=== PATIENT | female | born 1960 | race American Indian/Alaskan Native ===

== ENCOUNTER 2017-02-01 08:19 | Emergency (ER) | payer BC ==
[2017-02-01 08:20] VITALS: BMI 26.6
--- NOTE | 2017-02-01 08:44 | ED PDOC ---
Arrival/HPI - General Chief Complaint: Cough, Cold, Congestion Time Seen by Provider: 02/01/17 08:32 Historian: Patient - History of Present Illness Narrative History of Present Illness (Text): 02/01/17 08:37 A 56 year old female, whose past medical history includes hypertension, presents to the emergency department complaining of a nonproductive cough for the past three days. patient reports cough is not getting any better so she just wanted to come in and get evaluated. Patient denies any fever, chest pain, shortness of breath, nausea, vomiting, diarrhea, sore throat, runny nose, or any other complaints at this time. PMD: Dr. Fraga Time/Duration: Other (3 days) Symptom Onset: Sudden Symptom Course: Unchanged Quality: Other Activities at Onset: Rest Context: Home Past Medical History - Provider Review Nursing Documentation Reviewed: Yes - Infectious Disease Hx of Infectious Diseases: None - Cardiac Hx Cardiac Disorders: Yes Hx Hypertension: Yes - Pulmonary Hx Respiratory Disorders: No - Neurological Hx Neurological Disorder: No - HEENT Hx HEENT Disorder: No - Renal Hx Renal Disorder: No - Endocrine/Metabolic Hx Endocrine Disorders: No - Hematological/Oncological Hx Blood Disorders: No - Integumentary Hx Dermatological Disorder: No - Musculoskeletal/Rheumatological Hx Musculoskeletal Disorders: No - Gastrointestinal Hx Gastrointestinal Disorders: No - Genitourinary/Gynecological Hx Genitourinary Disorders: No - Psychiatric Hx Psychophysiologic Disorder: No Hx Substance Use: No - Surgical History Hx Dilation and Curettage: Yes - Anesthesia Hx Anesthesia: Yes Hx Anesthesia Reactions: No Hx Malignant Hyperthermia: No Family/Social History - Physician Review Nursing Documentation Reviewed: Yes Family/Social History: Unknown Family HX Smoking Status: Heavy Smoker > 10 Cigarettes Daily Hx Alcohol Use: No Hx Substance Use: No Allergies/Home Meds Allergies/Adverse Reactions: Allergies lisinopril Allergy (Verified 02/01/17 08:31) SWELLING Home Medications: Home Meds Medication Instructions Recorded Confirmed amLODIPine [Norvasc] 1 tab PO DAILY 01/11/16 02/01/17 Review of Systems - Physician Review All systems were reviewed & negative as marked: Yes - Review of Systems Constitutional: absent: Fevers ENT: absent: Sore Throat, Rhinorrhea Respiratory: Cough. absent: SOB, Sputum Cardiovascular: absent: Chest Pain Gastrointestinal: absent: Diarrhea, Nausea, Vomiting Physical Exam Vital Signs Reviewed: Yes Vital Signs Temp Pulse Resp BP Pulse Ox 02/01/17 08:25 97.8 F 94 H 20 134/102 H 98 02/01/17 08:20 97.8 F 94 H 20 134/102 H 98 Temperature: Afebrile Blood Pressure: Hypertensive Pulse: Regular Respiratory Rate: Normal Appearance: Positive for: Well-Appearing, Non-Toxic, Comfortable Pain Distress: None Mental Status: Positive for: Alert and Oriented X 3 - Systems Exam Head: Present: Atraumatic, Normocephalic Pupils: Present: PERRL Extroacular Muscles: Present: EOMI Conjunctiva: Present: Normal Mouth: Present: Moist Mucous Membranes Neck: Present: Normal Range of Motion Respiratory/Chest: Present: Clear to Auscultation, Good Air Exchange. No: Respiratory Distress, Accessory Muscle Use Cardiovascular: Present: Regular Rate and Rhythm, Normal S1, S2. No: Murmurs Abdomen: Present: Normal Bowel Sounds. No: Tenderness, Distention, Peritoneal Signs Back: Present: Normal Inspection Upper Extremity: Present: Normal Inspection. No: Cyanosis, Edema Lower Extremity: Present: Normal Inspection. No: Edema Neurological: Present: GCS=15, CN II-XII Intact, Speech Normal Skin: Present: Warm, Dry, Normal Color. No: Rashes Psychiatric: Present: Alert, Oriented x 3, Normal Insight, Normal Concentration Medical Decision Making ED Course and Treatment: 02/01/17 08:37 Impression: A 56 year old female with a nonproductive cough. Differential Diagnosis include but are not limited to: bronchitis vs. pneumonia vs. influenza Plan: -- Chest X-ray -- Influenza A/B -- Reassess and disposition Prior Visits: Notes and results from previous visits were reviewed. The patient last presented to the emergency department on 12/20/16 for evaluation of sharp left calf pain. Progress Notes: 02/01/17 09:20 Chest X-ray: Creator : Dylon Landaverde MD COMPARISON: No prior. FINDINGS: LUNGS: No active pulmonary disease. PLEURA: No significant pleural effusion identified. No pneumothorax apparent. CARDIOVASCULAR: Normal. OSSEOUS STRUCTURES: No significant abnormalities. VISUALIZED UPPER ABDOMEN: Normal. OTHER FINDINGS: None. IMPRESSION: No active disease. 02/01/17 09:55 Patient serology is negative for Influenza A and B. On re-evaluation, the patient is in no acute distress. Patient is able to speak in full sentence. Chest X-ray is negative. Influenza is negative. Patient is sleeping comfortably and stable for discharge. I have discussed the results and plan with the patient, who expresses understanding. Patient in agreement with plan to discharged home. Patient was advised to follow up with outpatient or return if symptoms worsen or new concerning symptoms arise. - Lab Interpretations Lab Results: Lab Results 02/01/17 09:00: Influenza Typ A,B (EIA) Negative for flu a/b I have reviewed the lab results: Yes - RAD Interpretation Radiology Orders: 02/01/17 08:40 CHEST TWO VIEWS (PA/LAT) [RAD] Stat - Scribe Statement The provider has reviewed the documentation as recorded by the Scribe Tiffanie Dillard Provider Scribe Attestation: All medical record entries made by the Scribe were at my direction and personally dictated by me. I have reviewed the chart and agree that the record accurately reflects my personal performance of the history, physical exam, medical decision making, and the department course for this patient. I have also personally directed, reviewed, and agree with the discharge instructions and disposition. Disposition/Present on Arrival - Present on Arrival Any Indicators Present on Arrival: No History of DVT/PE: No History of Uncontrolled Diabetes: No Urinary Catheter: No History of Decub. Ulcer: No History Surgical Site Infection Following: None - Disposition Have Diagnosis and Disposition been Completed?: Yes Diagnosis: Cough Disposition: HOME/ ROUTINE Disposition Time: 09:55 Patient Problems: Current Active Problems Problem Status Diagnosed Cough Acute Condition: STABLE Discharge Instructions (ExitCare): Upper Respiratory Infection (ED) Additional Instructions: please follow up with your doctor. return to er with worsening symptoms or concerns. Prescriptions: levoFLOXacin [Levaquin] 750 mg PO DAILY #7 tab Benzonatate [Tessalon Perle] 100 mg PO TID PRN #15 capsule PRN Reason: Cough Referrals: Rashaun Fraga MD [Primary Care Provider] - Follow up with primary
--- NOTE | 2017-02-01 09:20 | RAD ---
HISTORY: cough COMPARISON: No prior. TECHNIQUE: Chest PA and lateral FINDINGS: LUNGS: No active pulmonary disease. PLEURA: No significant pleural effusion identified. No pneumothorax apparent. CARDIOVASCULAR: Normal. OSSEOUS STRUCTURES: No significant abnormalities. VISUALIZED UPPER ABDOMEN: Normal. OTHER FINDINGS: None. IMPRESSION: No active disease.
[2017-02-01 10:33] VITALS: BP 136/86; PULSE 84; RESP 18; TEMP 98; O2SAT 97
== END 2017-02-01 10:33 | disposition home or self-care (01) ==
LOC: ED 08:19
DX: R05 Cough (principal); I10 Essential (primary) hypertension; F17.210 Nicotine dependence, cigarettes, uncomplicated

== ENCOUNTER 2017-02-02 22:57 | Emergency (ER) | payer BC ==
[2017-02-02 23:07] VITALS: BMI 30.2
[2017-02-02 23:10] VITALS: TEMP 98.6
--- NOTE | 2017-02-02 23:18 | ED PDOC ---
Arrival/HPI - General Chief Complaint: Abdominal Pain Time Seen by Provider: 02/02/17 23:08 Historian: Patient - History of Present Illness Narrative History of Present Illness (Text): 02/02/17 23:18 Mary Odonnell is a 56 year old female, whose past medical history include hypertension, who presents to the emergency department complaining of lower abdominal pain. Patient states she was seen in the emergency department yesterday, treated for a URI, and discharged home on Levaquin and Tessalon Perles. Patient states that she developed lower abdominal pain radiating to her back today. Patient denies any fever, chills, chest pain, shortness of breath, nausea, vomiting, diarrhea, urinary symptoms, neck pain, headache, dizziness, or any other complaints. PMD: Dr. Mike Fraga Time/Duration: Other (today) Symptom Onset: Gradual Symptom Course: Unchanged Activities at Onset: Rest, Light Context: Home Past Medical History - Infectious Disease Hx of Infectious Diseases: None - Cardiac Hx Cardiac Disorders: Yes Hx Hypertension: Yes - Pulmonary Hx Respiratory Disorders: No - Neurological Hx Neurological Disorder: No - HEENT Hx HEENT Disorder: No - Renal Hx Renal Disorder: No - Endocrine/Metabolic Hx Endocrine Disorders: No - Hematological/Oncological Hx Blood Disorders: No - Integumentary Hx Dermatological Disorder: No - Musculoskeletal/Rheumatological Hx Musculoskeletal Disorders: No - Gastrointestinal Hx Gastrointestinal Disorders: No - Genitourinary/Gynecological Hx Genitourinary Disorders: No - Psychiatric Hx Psychophysiologic Disorder: No Hx Substance Use: No - Surgical History Hx Dilation and Curettage: Yes - Anesthesia Hx Anesthesia: Yes Hx Anesthesia Reactions: No Hx Malignant Hyperthermia: No Family/Social History Family/Social History: No Known Family HX Smoking Status: Heavy Smoker > 10 Cigarettes Daily Hx Alcohol Use: No Hx Substance Use: No Allergies/Home Meds Allergies/Adverse Reactions: Allergies lisinopril Allergy (Verified 02/01/17 08:31) SWELLING Home Medications: Home Meds Medication Instructions Recorded Confirmed amLODIPine [Norvasc] 1 tab PO DAILY 01/11/16 02/01/17 Review of Systems - Physician Review All systems were reviewed & negative as marked: Yes - Review of Systems Constitutional: Normal. absent: Fevers Eyes: Normal ENT: Normal Respiratory: Normal. absent: SOB, Cough Cardiovascular: Normal. absent: Chest Pain Gastrointestinal: Abdominal Pain. absent: Diarrhea, Nausea, Vomiting Genitourinary Female: Normal. absent: Dysuria, Frequency, Hematuria, Urine Output Changes Musculoskeletal: Back Pain. absent: Neck Pain Skin: Normal. absent: Rash Neurological: Normal. absent: Headache, Dizziness Endocrine: Normal Hemo/Lymphatic: Normal Psychiatric: Normal Physical Exam Vital Signs Reviewed: Yes Vital Signs Temp Pulse Resp BP Pulse Ox 02/03/17 05:17 93 H 16 148/91 H 99 02/03/17 02:51 72 16 133/94 H 96 02/03/17 00:09 86 16 147/109 H 96 02/02/17 23:09 98.6 F 94 H 18 144/111 H 96 Temperature: Afebrile Blood Pressure: Normal Pulse: Regular Respiratory Rate: Normal Appearance: Positive for: Well-Appearing, Non-Toxic, Comfortable Pain Distress: None Mental Status: Positive for: Alert and Oriented X 3 - Systems Exam Head: Present: Atraumatic, Normocephalic Pupils: Present: PERRL Extroacular Muscles: Present: EOMI Conjunctiva: Present: Normal Mouth: Present: Moist Mucous Membranes Neck: Present: Normal Range of Motion Respiratory/Chest: Present: Clear to Auscultation, Good Air Exchange. No: Respiratory Distress, Accessory Muscle Use Cardiovascular: Present: Regular Rate and Rhythm, Normal S1, S2. No: Murmurs Abdomen: Present: Normal Bowel Sounds. No: Tenderness, Distention, Peritoneal Signs Back: Present: Normal Inspection. No: CVA Tenderness, Midline Tenderness, Paraspinal Tenderness Upper Extremity: Present: Normal Inspection. No: Cyanosis, Edema Lower Extremity: Present: Normal Inspection. No: Edema Neurological: Present: GCS=15, CN II-XII Intact, Speech Normal Skin: Present: Warm, Dry, Normal Color. No: Rashes Psychiatric: Present: Alert, Oriented x 3, Normal Insight, Normal Concentration Medical Decision Making ED Course and Treatment: 02/02/17 23:18 Impression: 56 year old female complaining of lower abdominal pain radiating to her back today. Differential Diagnosis included but are not limited to: UTI vs. cystitis vs. renal colic vs. URI Plan: -- CT Abdomen and Pelvis with IV contrast -- EKG -- Labs, lipase -- IV fluids -- Toradol -- Reassess and disposition Prior Visits: Notes and results from previous visits were reviewed. On 02/01/2017, pt was seen in the emergency department for non-productive cough. CXR and rapid influenza performed yesterday were negative. Pt was d/c home with Kristy and Lo Hahn Progress Notes: 02/02/17 23:41 Reviewed EKG, NSR at [address]-segment elevations or depressions, no T-wave inversions, normal intervals. 02/03/17 02:44 Reviewed radiology, CT Abdomen and Pelvis shows: No acute findings. 02/03/17 04:50 Patient is resting comfortably, abdomen remains soft, and patient is tolerating PO. Patient feels comfortable going home. Patient will be discharged home. - Lab Interpretations Lab Results: 02/02/17 23:50 02/02/17 23:50 Lab Results 02/03/17 03:40: Urine Color yellow, Urine Appearance Clear, Urine pH 6.5, Ur Specific [place] 1.010, Urine Protein Trace H, Urine Glucose (UA) Negative, Urine Ketones Negative, Urine Blood Moderate H, Urine Nitrate Negative, Urine Bilirubin Negative, Urine Urobilinogen 1.0 H, Ur Leukocyte Esterase Negative, Urine RBC 20 - 25, Urine WBC 1 - 3, Ur Epithelial Cells 0 - 2 02/02/17 23:50: WBC 6.0, RBC 5.05, Hgb 15.4, Hct 45.7, MCV 90.5, MCH 30.5, MCHC 33.7, RDW 13.8, Plt Count 258, MPV 9.5, PT 11.1, INR 1.03, APTT 27.8, Sodium 138 , Potassium 3.9, Chloride 106, Carbon Dioxide 22, Anion Gap 14, BUN 14, Creatinine 0.9, Est GFR ( Amer) > 60, Est GFR (Non-Af Amer) > 60, Random Glucose 97, Calcium 9.1, Total Bilirubin 0.5, AST 38, ALT 36, Alkaline Phosphatase 112, Total Protein 7.6, Albumin 3.9, Globulin 3.7, Albumin/Globulin Ratio 1.1, Lipase 46 I have reviewed the lab results: Yes - RAD Interpretation Narrative RAD Interpretations (Text): CT Abdomen and Pelvis shows: Lower thorax: Basilar dependent pulmonary atelectasis is present. ABDOMEN: Liver: Unremarkable. No mass. Gallbladder and bile ducts: Unremarkable. No calcified stones. No ductal dilation. Pancreas: Unremarkable. No mass. No ductal dilation. Spleen: Unremarkable. No splenomegaly. Adrenals: Unremarkable. No mass. Kidneys and ureters: Unremarkable. No solid mass. No hydronephrosis. Stomach and bowel: Unremarkable. No obstruction. No mucosal thickening Appendix: No findings to suggest acute appendicitis. PELVIS: Bladder: Unremarkable. No mass. Reproductive: Myomatous uterus noted ABDOMEN and PELVIS: Intraperitoneal space: Unremarkable. No free air. No significant fluid collection. Bones/joints: No acute fracture. No dislocation. Soft tissues: Unremarkable. Vasculature: Unremarkable. No abdominal aortic aneurysm. Lymph nodes: Unremarkable. No enlarged lymph nodes. IMPRESSION: No acute findings. Radiology Orders: 02/03/17 01:05 ABD & PELVIS IV CONTRAST ONLY [CT] Stat Assisted Living Associate: Radiologist - EKG Interpretation EKG Interpretation (Text): EKG: Ordered, reviewed, and independently interpreted the EKG. Rate : 86 BPM Rhythm : NSR Interpretation : No ST-segment elevations or depressions, no T-wave inversions, normal intervals. Comparison : No previous EKG for comparison. Interpreted by ED Physician: Yes Type: 12 lead EKG - Medication Orders Current Medication Orders: Discontinued Medications Sodium Chloride (Sodium Chloride 0.9%) 1,000 mls @ 100 mls/hr IV .Q10H HANNA Last Admin: 02/02/17 23:58 Dose: 100 MLS/HR eMAR Start Stop Document 02/02/17 23:58 EKEOO (Rec: 02/02/17 23:58 [id number]) Intravenous Solution Start Date 02/02/17 Start Time 23:58 Iohexol (Omnipaque 350 100 Ml) Confirm Administered Dose 350 mg .ROUTE .STK-MED ONE Stop: 02/03/17 01:12 Ketorolac Tromethamine (Toradol) 30 mg IVP ONCE ONE Stop: 02/02/17 23:33 Last Admin: 02/02/17 23:58 Dose: 30 MG IVP Administration Document 02/02/17 23:58 EKEOO (Rec: 02/02/17 23:58 [id number]) Charges for Administration # of IVP Administrations 1 - Scribe Statement The provider has reviewed the documentation as recorded by the Kevin Butler Provider Attestation: All medical record entries made by the Scribe were at my direction and personally dictated by me. I have reviewed the chart and agree that the record accurately reflects my personal performance of the history, physical exam, medical decision making, and the department course for this patient. I have also personally directed, reviewed, and agree with the discharge instructions and disposition. Disposition/Present on Arrival - Present on Arrival Any Indicators Present on Arrival: No History of DVT/PE: No History of Uncontrolled Diabetes: No Urinary Catheter: No History of Decub. Ulcer: No History Surgical Site Infection Following: None - Disposition Have Diagnosis and Disposition been Completed?: Yes Diagnosis: Cystitis, URI (upper respiratory infection) Disposition: HOME/ ROUTINE Disposition Time: 04:50 Patient Plan: Discharge Condition: GOOD Discharge Instructions (ExitCare): Urinary Tract Infection in Women (ED), Upper Respiratory Infection (ED) Additional Instructions: Stop levaquin antibiotics/take Keflex meds as prescribed/drink plenty of liquids /follow up with your doctor /urologist this week Prescriptions: Cephalexin [cephalexin] 500 mg PO BID #14 cap Referrals: Rashaun Fraga MD [Primary Care Provider] - Follow up with primary Stef Toney MD [Staff Provider] - Follow up with primary
[2017-02-02] MEDS ORDERED: Sodium Chloride 0.9% 1,000 ML IV SCH (23:45)
[2017-02-03 00:10] VITALS: RESP 16
[2017-02-03 00:31] LABS: HEMATOCRIT 45.7 % (36.0-48.0); MEAN CELL VOLUME 90.5 fL (80.0-105.0); MEAN CORPUSCULAR HEMOGLOBIN 30.5 pg (25.0-35.0); MEAN CORPUSCULAR HGB CONC 33.7 g/dl (31.0-37.0); MEAN PLATELET VOLUME 9.5 fl (7.0-11.0); RED CELL DISTRIBUTION WIDTH 13.8 % (11.5-14.5)
[2017-02-03 00:37] LABS: INR 1.03 (0.93-1.08); PARTIAL THROMBOPLASTIN TIME 27.8 Seconds (23.7-30.8)
[2017-02-03 00:47] LABS: ALB/GLOB RATIO 1.1 (1.1-1.8); ALKALINE PHOSPHATASE 112 U/L (38-133); ALT/SGPT 36 U/L (7-56); AST/SGOT 38 U/L (15-39); BILIRUBIN,TOTAL 0.5 mg/dL (0.2-1.3); BLOOD UREA NITROGEN 14 mg/dL (7-21); CALCIUM 9.1 mg/dL (8.4-10.5); CARBON DIOXIDE 22 mmol/L (21-33); CHLORIDE 106 mmol/L (98-107); GFR AFRICAN-AMERICAN > 60; GLUCOSE,RANDOM 97 mg/dL (70-110); LIPASE 46 U/L (23-300); POTASSIUM 3.9 mmol/L (3.6-5.0); SODIUM 138 mmol/L (132-148); TOTAL PROTEIN 7.6 g/dL (5.8-8.3)
[2017-02-03] MEDS ORDERED: Iohexol 350 MG/100 ML VIAL ONE (01:11)
[2017-02-03 04:27] LABS: PH,URINE 6.5 (4.7-8.0); URINE BILIRUBIN NEGATIVE (NEGATIVE); URINE BLOOD MODERATE (NEGATIVE); URINE GLUCOSE (UA) NEGATIVE (NEGATIVE); URINE KETONE NEGATIVE (NEGATIVE); URINE LEUKOCYTE ESTERASE NEGATIVE Leu/uL (NEGATIVE); URINE PROTEIN TRACE mg/dL (<30 mg/dL)
[2017-02-03 04:33] LABS: URINE APPEARANCE CLEAR (CLEAR); URINE EPITHELIAL CELLS 0 - 2 /hpf (0-5); URINE RBC 20 - 25 /hpf (0-2)
[2017-02-03 05:18] VITALS: BP 148/91; PULSE 93; O2SAT 99
--- NOTE | 2017-02-03 08:36 | CT ---
PROCEDURE: CT Abdomen and Pelvis with contrast HISTORY: abdominal pain COMPARISON: None. TECHNIQUE: Contrast dose: 100 cc of Omni 350 Radiation dose: Total exam DLP = 766 mGy-cm. This CT exam was performed using one or more of the following dose reduction techniques: Automated exposure control, adjustment of the mA and/or kV according to patient size, and/or use of iterative reconstruction technique. FINDINGS: LOWER THORAX: Unremarkable. LIVER: Unremarkable. No gross lesion or ductal dilatation. GALLBLADDER AND BILE DUCTS: Unremarkable. PANCREAS: Unremarkable. No gross lesion or ductal dilatation. SPLEEN: Unremarkable. ADRENALS: Unremarkable. No mass. KIDNEYS AND URETERS: Unremarkable. No hydronephrosis. No solid mass. VASCULATURE: Unremarkable. No aortic aneurysm. BOWEL: Unremarkable. No obstruction. No gross mural thickening. APPENDIX: Normal appendix. PERITONEUM: Unremarkable. No free fluid. No free air. LYMPH NODES: Unremarkable. No enlarged lymph nodes. BLADDER: Unremarkable. REPRODUCTIVE: Probable fibroids BONES: No acute fracture. OTHER FINDINGS: The report concurs with the preliminary [facility] report IMPRESSION: No acute findings
--- NOTE | 2017-02-03 12:14 | CARD ---
APPROVED REPORT EKG Measurement Heart [id number] <Conclusion> Normal sinus rhythm Normal ECG
== END 2017-02-03 05:19 | disposition home or self-care (01) ==
LOC: ED 22:57
DX: J06.9 Acute upper respiratory infection, unspecified (principal); N30.90 Cystitis, unspecified without hematuria; I10 Essential (primary) hypertension; F17.210 Nicotine dependence, cigarettes, uncomplicated
CPT/HCPCS: 74177; 80053; 81001; 83690; 85027; 85610; 85730; 93005; 96374; 99283; J1885; J7040; Q9967

== ENCOUNTER 2017-08-08 17:53 | Emergency (ER) | payer BC ==
[2017-08-08 17:54] VITALS: BMI 30.2
[2017-08-08 18:04] VITALS: TEMP 99.4
[2017-08-08] MEDS ORDERED: Albuterol-Ipratrop 3 mg / 0.5 (3 ml) UD IH STA (19:10)
--- NOTE | 2017-08-08 19:15 | ED PDOC ---
Arrival/HPI - General Chief Complaint: Cough, Cold, Congestion Time Seen by Provider: 08/08/17 18:13 Historian: Patient - History of Present Illness Narrative History of Present Illness (Text): 08/08/17 19:12 This 56-year-old female past medical history hypertension presents to the ED complaining of productive cough 2 days. Patient stated since then has worsened today. Patient also complains of nasal congestion. Patient admits smoking cigarettes on a daily basis. Denies fever, chest pain, abdominal pain, recent travel, sick contact, urinary symptoms, or abnormal gait. Time/Duration: Other (2 days) Context: Home Past Medical History - Provider Review Nursing Documentation Reviewed: Yes - Infectious Disease Hx of Infectious Diseases: None - Cardiac Hx Cardiac Disorders: Yes Hx Hypertension: Yes - Pulmonary Hx Respiratory Disorders: Yes Hx Asthma: Yes - Neurological Hx Neurological Disorder: No - HEENT Hx HEENT Disorder: No - Renal Hx Renal Disorder: No - Endocrine/Metabolic Hx Endocrine Disorders: No - Hematological/Oncological Hx Blood Disorders: No - Integumentary Hx Dermatological Disorder: No - Musculoskeletal/Rheumatological Hx Musculoskeletal Disorders: No - Gastrointestinal Hx Gastrointestinal Disorders: No - Genitourinary/Gynecological Hx Genitourinary Disorders: No - Psychiatric Hx Psychophysiologic Disorder: No Hx Substance Use: No - Surgical History Hx Breast Biopsy: Yes (cyst removal left breast) Hx Dilation and Curettage: Yes - Anesthesia Hx Anesthesia: Yes Hx Anesthesia Reactions: No Hx Malignant Hyperthermia: No Family/Social History - Physician Review Nursing Documentation Reviewed: Yes Family/Social History: Other (Noncontributory) Smoking Status: Heavy Smoker > 10 Cigarettes Daily Hx Alcohol Use: No Hx Substance Use: No Allergies/Home Meds Allergies/Adverse Reactions: Allergies lisinopril Allergy (Verified 08/08/17 18:02) SWELLING Home Medications: Home Meds Medication Instructions Recorded Confirmed amLODIPine [Norvasc] 10 mg PO DAILY 01/11/16 08/08/17 Review of Systems - Review of Systems Constitutional: Normal. absent: Fatigue, Weight Change, Fevers Eyes: Normal ENT: Rhinorrhea Respiratory: Cough Cardiovascular: Normal. absent: Chest Pain, Palpitations Gastrointestinal: Normal. absent: Abdominal Pain, Nausea, Vomiting Genitourinary Female: Normal. absent: Dysuria, Frequency, Hematuria Musculoskeletal: Normal Skin: Normal Neurological: Normal Endocrine: Normal Hemo/Lymphatic: Normal Psychiatric: Normal Physical Exam Vital Signs Temp Pulse Resp BP Pulse Ox 08/08/17 18:03 99.4 F 100 H 17 128/91 H 99 Temperature: Afebrile Blood Pressure: Normal Pulse: Regular Respiratory Rate: Normal Appearance: Positive for: Well-Appearing, Non-Toxic, Comfortable Pain Distress: None Mental Status: Positive for: Alert and Oriented X 3 - Systems Exam Head: Present: Atraumatic, Normocephalic Pupils: Present: PERRL Extroacular Muscles: Present: EOMI Conjunctiva: Present: Normal Mouth: Present: Moist Mucous Membranes Neck: Present: Normal Range of Motion Respiratory/Chest: Present: Good Air Exchange, Rhonchi. No: Respiratory Distress, Accessory Muscle Use, Wheezes, Decreased Breath Sounds, Rales, Retracting, Tachypneic, Tender to Palpation Cardiovascular: Present: Regular Rate and Rhythm, Normal S1, S2. No: Murmurs Abdomen: Present: Normal Bowel Sounds. No: Tenderness, Distention, Peritoneal Signs Back: Present: Normal Inspection. No: CVA Tenderness Upper Extremity: Present: Normal Inspection, Normal ROM, NORMAL PULSES, Neurovascularly Intact, Capillary Refill < 2s. No: Cyanosis, Edema Lower Extremity: Present: Normal Inspection, NORMAL PULSES, Normal ROM, Neurovascularly Intact, Capillary Refill < 2 s. No: Edema, CALF TENDERNESS Neurological: Present: GCS=15, CN II-XII Intact, Speech Normal, Motor Func Grossly Intact, Normal Sensory Function, Normal Cerebellar Funct, Gait Normal Skin: Present: Warm, Dry, Normal Color. No: Rashes Psychiatric: Present: Alert, Oriented x 3, Normal Insight, Normal Concentration Medical Decision Making ED Course and Treatment: 08/08/17 20:00 I reviewed risk vs benefits when taking Prednisone. I told patient risks ar but not only AVN, glaucoma, DM, osteoporosis, renal failure, liver failure, mood disorder. She was also instructed to stop Prednisone earlier if symptoms improves. Patient still requested to be prescribed Prednisone, and she understood risk. 08/08/17 20:43 Re-evaluation. Patient feels better. Discussed results and plan with patient who expresses understanding. All questions answered and there is agreement with the plan to discharge home with instructions. Patient stable for discharge. Return if symptoms persist or worsen. Lungs are clear bilaterally, no rhonchi, no wheezing, no rales. Patient feels well and she wishes to be discharged home. I review chest x-ray report with patient. Chest x-rays was read by me. I told patient chest x-ray appears to be no acute disease. I told patient official report chest x-ray will be available tomorrow and if there is any changes we would call her with the up-to-date result. I recommend patient to see Dr. Fraga tomorrow morning for reevaluation. Patient was recommended to take medication as instructed with food and to return to the emergency department if symptoms worsen I advised patient to stop smoking cigarettes. I explained about the risk involved and smoking tobacco, and different ways to stop smoking. This took me about 5 minutes. 08/08/17 20:52 Patient is requesting ABX Re-evaluation Time: 20:43 Reassessment Condition: Re-examined, Improved - RAD Interpretation Narrative RAD Interpretations (Text): 08/08/17 20:45 Chest x-rays: no acute disease Radiology Orders: 08/08/17 19:11 CHEST TWO VIEWS (PA/LAT) [RAD] Stat - Medication Orders Current Medication Orders: Discontinued Medications Albuterol/Ipratropium (Duoneb 3 Mg/0.5 Mg (3 Ml) Ud) 6 ml IH STAT STA Stop: 08/08/17 19:11 Last Admin: 08/08/17 19:27 Dose: 6 ml Prednisone (Prednisone Tab) 60 mg PO STAT ONE Stop: 08/08/17 19:12 Last Admin: 08/08/17 19:27 Dose: 60 mg Disposition/Present on Arrival - Present on Arrival Any Indicators Present on Arrival: No History of DVT/PE: No History of Uncontrolled Diabetes: No Urinary Catheter: No History of Decub. Ulcer: No History Surgical Site Infection Following: None - Disposition Have Diagnosis and Disposition been Completed?: Yes Diagnosis: Acute bronchitis Disposition: HOME/ ROUTINE Disposition Time: 20:55 Patient Plan: Discharge Condition: GOOD Discharge Instructions (ExitCare): Acute Bronchitis (ED) Additional Instructions: Call Dr. Fraga for follow up visit in 1 day. Take medication as instructed with food. Do not drive or operate machinery if you are taking cough medication. Return to emergency if you develop fever, shortness of breath, chest pain, rash, or worsen symptoms. Stop Prednisone once symptoms improve Prescriptions: Albuterol HFA [Ventolin HFA 90 mcg/actuation (8 g)] 2 puff IH [id number] PRN #120 puff PRN Reason: Wheezing Azithromycin [Z-Fredis] 250 mg PO DAILY #6 tab Prednisone [Deltasone] 60 mg PO DAILY #12 tablet Promethazine/Codeine [Codeine/Promethazine 10 MG/5 Ml-6.25 MG/5 Ml] 5 ml PO Q4H PRN #60 ml PRN Reason: Cough Referrals: Rashaun Fraga MD [Primary Care Provider] - Follow up with primary Forms: [employer] ([place]), WORK NOTE
[2017-08-08 21:16] VITALS: BP 127/84; PULSE 87; RESP 18; O2SAT 100
--- NOTE | 2017-08-09 10:52 | RAD ---
HISTORY: cough COMPARISON: 02/01/2017 TECHNIQUE: Chest PA and lateral FINDINGS: LUNGS: No active pulmonary disease. PLEURA: No significant pleural effusion identified. No pneumothorax apparent. CARDIOVASCULAR: Normal. OSSEOUS STRUCTURES: No significant abnormalities. VISUALIZED UPPER ABDOMEN: Normal. OTHER FINDINGS: None. IMPRESSION: No active disease.
== END 2017-08-08 21:16 | disposition home or self-care (01) ==
LOC: ED 17:53
DX: J20.9 Acute bronchitis, unspecified (principal); F17.210 Nicotine dependence, cigarettes, uncomplicated

== ENCOUNTER 2017-10-22 08:05 | Emergency (ER) | payer BC ==
[2017-10-22 08:05] VITALS: BMI 30.2
--- NOTE | 2017-10-22 08:23 | ED PDOC ---
Arrival/HPI - General Time Seen by Provider: 10/22/17 08:10 Historian: Patient - History of Present Illness Narrative History of Present Illness (Text): 10/22/17 08:22 A 57 year old female, whose past medical history includes hypertension, presents to the emergency department complaining of right sided calf pain and midsternal chest pain since yesterday. Patient describes her pain as a sharp sensation, worse with deep breaths. Patient denies any fever, chills, nausea, vomiting, abdominal pain, palpitations, shortness of breath, cough, headache, dizziness or any other complaints. Patient denies any recent travel, surgeries or oral contraceptive use. PMD: Dr. Fraga Time/Duration: Other (yesterday) Symptom Course: Unchanged Quality: Other (Sharp) Context: Home Past Medical History - Provider Review Nursing Documentation Reviewed: Yes - Infectious Disease Hx of Infectious Diseases: None - Cardiac Hx Cardiac Disorders: Yes Hx Hypertension: Yes - Pulmonary Hx Respiratory Disorders: Yes Hx Asthma: Yes - Neurological Hx Neurological Disorder: No - HEENT Hx HEENT Disorder: No - Renal Hx Renal Disorder: No - Endocrine/Metabolic Hx Endocrine Disorders: No - Hematological/Oncological Hx Blood Disorders: No - Integumentary Hx Dermatological Disorder: No - Musculoskeletal/Rheumatological Hx Musculoskeletal Disorders: No - Gastrointestinal Hx Gastrointestinal Disorders: No - Genitourinary/Gynecological Hx Genitourinary Disorders: No - Psychiatric Hx Psychophysiologic Disorder: No Hx Substance Use: No - Surgical History Hx Breast Biopsy: Yes (cyst removal left breast) Hx Dilation and Curettage: Yes - Anesthesia Hx Anesthesia: Yes Hx Anesthesia Reactions: No Hx Malignant Hyperthermia: No Family/Social History - Physician Review Nursing Documentation Reviewed: Yes Family/Social History: No Known Family HX Smoking Status: Heavy Smoker > 10 Cigarettes Daily Hx Alcohol Use: No Hx Substance Use: No Allergies/Home Meds Allergies/Adverse Reactions: Allergies lisinopril Allergy (Verified 10/22/17 08:24) SWELLING Home Medications: Home Meds Medication Instructions Recorded Confirmed amLODIPine [Norvasc] 10 mg PO DAILY 01/11/16 10/22/17 Review of Systems - Physician Review All systems were reviewed & negative as marked: Yes - Review of Systems Constitutional: absent: Fevers, Night Sweats Respiratory: absent: SOB, Cough Cardiovascular: Chest Pain, Calf Pain. absent: Palpitations Gastrointestinal: absent: Abdominal Pain, Nausea, Vomiting Neurological: absent: Headache, Dizziness Physical Exam Vital Signs Temp Pulse Resp BP Pulse Ox 10/22/17 08:09 97.9 F 88 18 139/97 H 98 Appearance: Positive for: Well-Appearing, Non-Toxic, Comfortable Pain Distress: None Mental Status: Positive for: Alert and Oriented X 3 - Systems Exam Head: Present: Atraumatic, Normocephalic Pupils: Present: PERRL Extroacular Muscles: Present: EOMI Conjunctiva: Present: Normal Mouth: Present: Moist Mucous Membranes Neck: Present: Normal Range of Motion Respiratory/Chest: Present: Clear to Auscultation, Good Air Exchange, Tender to Palpation (Chest wall tenderness). No: Respiratory Distress, Accessory Muscle Use Cardiovascular: Present: Regular Rate and Rhythm, Normal S1, S2. No: Murmurs Abdomen: Present: Normal Bowel Sounds. No: Tenderness, Distention, Peritoneal Signs Back: Present: Normal Inspection Upper Extremity: Present: Normal Inspection. No: Cyanosis, Edema Lower Extremity: Present: CALF TENDERNESS (Right calf tenderness lateral side), NORMAL PULSES, Normal ROM. No: Edema, [place]'s Sign, Swelling Neurological: Present: GCS=15, CN II-XII Intact, Speech Normal Skin: Present: Warm, Dry, Normal Color. No: Rashes Psychiatric: Present: Alert, Oriented x 3, Normal Insight, Normal Concentration Medical Decision Making ED Course and Treatment: 10/22/17 08:22 Impression: A 57 year old female with right calf and midsternal chest pain. Differential Diagnosis included but are not limited to: Chest pain rule out PE vs. Costochondritis vs. ACS Plan: -- Duplex lower extremity ultrasound -- Angio chest CT -- Chest xray -- EKG -- Labs -- Toradol -- Reassess and disposition Progress Notes: EKG shows NSR at [address]-segment elevations, normal intervals, no changes from prior on 02/02/17. Interpreted by me. 10/22/17 09:30 Spoke with Tang Song, reports preliminary ultrasound report is negative. Report Date : 10/22/2017 09:58:28 PROCEDURE: CT Chest with contrast (Pulmonary Angiogram) Dictator : Ministerio Velásquez MD IMPRESSION: Unremarkable CT pulmonary angiogram. No pulmonary embolus. Additional benign and/or incidental findings described above. Report Date : 10/22/2017 10:04:45 Procedure: Chest xray Dictator : Minitserio Velásquez MD IMPRESSION: No active disease. No significant interval change compared to the prior examination(s). 10/22/17 10:15 Patient feels much better after toradol. No longer having pain. Pain has been greater than 8 hours with a negative troponin and a Heart Score of 2. Patient is a low risk cardiac based on History and Heart Score. She has great follow up with Dr. Fraga and will make sure to see him and a internet database specialist on follow up. She will take motrin as need for pain. - Lab Interpretations Lab Results: 10/22/17 08:15 10/22/17 08:15 Lab Results 10/22/17 08:15: Sodium 141, Potassium 3.7, Chloride 108 H, Carbon Dioxide 23, Anion Gap 13, BUN 13, Creatinine 0.9, Est GFR ( Amer) > 60, Est GFR (Non- Af Amer) > 60, Random Glucose 113 H, Calcium 9.4, Magnesium 1.9, Total Bilirubin 0.4, AST 32, ALT 30, Alkaline Phosphatase 106, Lactate Dehydrogenase 693, Total Creatine Kinase 188, Troponin I < 0.01, Total Protein 7.1, Albumin 3.9, Globulin 3.2, Albumin/Globulin Ratio 1.2 10/22/17 08:15: PT 11.1, INR 1.01, APTT 29.5, D-Dimer, Quantitative 747 H 10/22/17 08:15: WBC 6.7, RBC 4.83, Hgb 14.9, Hct 44.1, MCV 91.3, MCH 30.8, MCHC 33.8, RDW 13.5, Plt Count 246, MPV 9.1, Gran % 72.5 H, Lymph % (Auto) 19.6 L, Creek % (Auto) 5.8, Eos % (Auto) 1.5, Baso % (Auto) 0.6, Gran # 4.87, Lymph # 1.3 , Creek # 0.4, Eos # 0.1, Baso # 0.04 I have reviewed the lab results: Yes - RAD Interpretation Radiology Orders: 10/22/17 08:24 ANGIO CHEST PE PROTOCOL [CT] Stat CHEST PORTABLE [RAD] Stat 10/22/17 08:25 DUPLEX LOWER EXTRM VEIN RIGHT [US] Stat - Medication Orders Current Medication Orders: Discontinued Medications Ketorolac Tromethamine (Toradol) 30 mg IVP STAT STA Stop: 10/22/17 08:25 Last Admin: 10/22/17 08:45 Dose: 30 mg MAR Pain Assessment Document 10/22/17 08:45 SZA (Rec: 10/22/17 08:54 LILIANA [id number]) Pain Reassessment Is this a pain reassessment? No Sleep Is patient sleeping during reassessment? No Presence of Pain Presence of Pain Yes Pain Scale Used Pain Scale Used Numeric Description Description Intermittent Intensity of Pain at present 5 IVP Administration Document 10/22/17 08:45 PATRICIAA (Rec: 10/22/17 08:54 LILIANA [id number]) Charges for Administration # of IVP Administrations 1 - Scribe Statement The provider has reviewed the documentation as recorded by the Scribe Benita Romero Provider Scribe Attestation: All medical record entries made by the Scribe were at my direction and personally dictated by me. I have reviewed the chart and agree that the record accurately reflects my personal performance of the history, physical exam, medical decision making, and the department course for this patient. I have also personally directed, reviewed, and agree with the discharge instructions and disposition. Disposition/Present on Arrival - Present on Arrival Any Indicators Present on Arrival: No History of DVT/PE: No History of Uncontrolled Diabetes: No Urinary Catheter: No History Surgical Site Infection Following: None - Disposition Have Diagnosis and Disposition been Completed?: Yes Diagnosis: Muscle spasm of calf, Chest pain Disposition: HOME/ ROUTINE Disposition Time: 10:17 Patient Plan: Discharge Condition: IMPROVED Discharge Instructions (ExitCare): Chest Pain (ED) Additional Instructions: Ms Odonnell, thank you for letting us take care of you today. Your provider was Dr. Irene. You were treated for Chest Pain, Calf Pain The emergency medical care you received today was directed at your acute symptoms. If you were prescribed any medication, please fill it and take as directed. It may take several days for your symptoms to resolve. Return to the Emergency Department if your symptoms worsen, do not improve, or if you have any other problems. Please contact your doctor or call one of the physicians/clinics you have been referred to that are listed on the Patient Visit Information form that is included in your discharge packet. Bring any paperwork you were given at discharge with you along with any medications you are taking to your follow up visit. Our treatment cannot replace ongoing medical care by a primary care provider (PCP) outside of the emergency department. Thank you for allowing the [facility] team to be part of your care today. If you had an X-Ray or CT scan: A Radiologist will review the ED reading if any change in treatment is needed we will contact you. If you had a blood, urine, or wound culture: It will take several days for the results, if any change in treatment is needed we will contact you. If you had an STI test: It will take 48 hours for the results. Please call after 1 week if you have not heard back. Referrals: Rashaun Fraga MD [Primary Care Provider] - Follow up with primary Forms: [employer] ([place]), WORK NOTE
[2017-10-22 08:35] VITALS: TEMP 97.9
[2017-10-22] MEDS ORDERED: Iohexol 350 MG/100 ML VIAL ONE (08:50)
[2017-10-22 09:03] LABS: BASO # 0.04 K/mm3 (0.0-2.0); BASO % 0.6 % (0.0-3.0); EOS # 0.1 (0.0-0.7); EOS % 1.5 % (1.5-5.0); GRAN # 4.87 (1.4-6.5); GRAN % 72.5 % (50.0-68.0); HEMATOCRIT 44.1 % (36.0-48.0); LYMPH # 1.3 (1.2-3.4); LYMPH % 19.6 % (22.0-35.0); MEAN CELL VOLUME 91.3 fl (80.0-105.0); MEAN CORPUSCULAR HEMOGLOBIN 30.8 pg (25.0-35.0); MEAN CORPUSCULAR HGB CONC 33.8 g/dl (31.0-37.0); MEAN PLATELET VOLUME 9.1 fl (7.0-11.0); MONO # 0.4 (0.1-0.6); MONO % 5.8 % (1.0-6.0); RED CELL DISTRIBUTION WIDTH 13.5 % (11.5-14.5); WHITE BLOOD COUNT 6.7 10^3/ul (4.5-11.0)
[2017-10-22 09:10] LABS: ALB/GLOB RATIO 1.2 (1.1-1.8); ALKALINE PHOSPHATASE 106 U/L (38-126); ALT/SGPT 30 U/L (7-56); AST/SGOT 32 U/L (14-36); BILIRUBIN,TOTAL 0.4 mg/dL (0.2-1.3); BLOOD UREA NITROGEN 13 mg/dL (7-21); CALCIUM 9.4 mg/dL (8.4-10.5); CARBON DIOXIDE 23 mmol/L (21-33); CHLORIDE 108 mmol/L (98-107); GFR AFRICAN-AMERICAN > 60; GLUCOSE,RANDOM 113 mg/dL (70-110); MAGNESIUM 1.9 mg/dL (1.7-2.2); POTASSIUM 3.7 mmol/L (3.6-5.0); SODIUM 141 mmol/L (132-148); TOTAL PROTEIN 7.1 g/dL (5.8-8.3)
[2017-10-22 09:14] LABS: INR 1.01 (0.93-1.08); PARTIAL THROMBOPLASTIN TIME 29.5 Seconds (25.1-36.5)
[2017-10-22 09:21] LABS: TROPONIN I < 0.01 ng/mL
--- NOTE | 2017-10-22 10:00 | CT ---
PROCEDURE: CT Chest with contrast (Pulmonary Angiogram) HISTORY: chest pain r/o PE COMPARISON: None available. TECHNIQUE: Axial computed tomography images were obtained of the chest in the pulmonary arterial phase of enhancement. Coronal and sagittal reformatted images were created and reviewed. Maximum intensity projection (MIP) reconstructed images in the following planes: Coronal and sagittal Intravenous contrast dose: 100 cc Omnipaque 350 Mean Hounsfield unit values in the main pulmonary artery: 47.88 Radiation dose: Total exam DLP = 400.90 foot mGy-cm. This CT exam was performed using one or more of the following dose reduction techniques: Automated exposure control, adjustment of the mA and/or kV according to patient size, and/or use of iterative reconstruction technique. FINDINGS: PULMONARY ARTERIES: Unremarkable. No pulmonary embolism. AORTA: No acute findings. No thoracic aortic aneurysm. LUNGS: Dependent atelectasis. Otherwise unremarkable pulmonary parenchyma. PLEURAL SPACES: Unremarkable. No effusion or pneuomothorax. HEART: Unremarkable. No cardiomegaly. No significant pericardial effusion. LYMPH NODES: No lymphadenopathy. BONES, CHEST WALL: Unremarkable. No fracture or destructive lesion OTHER FINDINGS: Unremarkable. IMPRESSION: Unremarkable CT pulmonary angiogram. No pulmonary embolus. Additional benign and/or incidental findings described above.
--- NOTE | 2017-10-22 10:06 | RAD ---
HISTORY: Chest pain COMPARISON: 08/08/2017 FINDINGS: LUNGS: No active pulmonary disease. PLEURA: No significant pleural effusion identified, no pneumothorax apparent. CARDIOVASCULAR: No radiographic findings to suggest acute or significant cardiovascular disease. OSSEOUS STRUCTURES: No significant abnormalities. VISUALIZED UPPER ABDOMEN: Normal. OTHER FINDINGS: None. IMPRESSION: No active disease. No significant interval change compared to the prior examination(s).
[2017-10-22 11:05] VITALS: BP 144/91; PULSE 78; RESP 16; O2SAT 99
--- NOTE | 2017-10-22 13:05 | US ---
PROCEDURE: Right lower extremity venous US HISTORY: Leg pain and swelling. Evaluate for DVT. PHYSICIAN(S): Jon Costa M.D. TECHNIQUE: Duplex sonography and color-flow Doppler with graded compression were used to evaluate the deep venous system of the right lower extremity. FINDINGS: The visualized deep venous system of the right lower extremity is sonographically normal and compressible. Normal waveforms and augmentation are seen. There is no sonographic evidence for deep venous thrombosis in the visualized segments of the right lower extremity. IMPRESSION: 1. No sonographic evidence for deep venous thrombosis in the visualized segments of the right lower extremity.
--- NOTE | 2017-10-22 17:23 | CARD ---
APPROVED REPORT EKG Measurement Heart [id number] <Conclusion> Poor data quality, interpretation may be adversely affected Normal sinus rhythm Normal ECG
== END 2017-10-22 10:30 | disposition home or self-care (01) ==
LOC: ED 08:05
DX: M62.831 Muscle spasm of calf (principal); R07.9 Chest pain, unspecified; F17.210 Nicotine dependence, cigarettes, uncomplicated; I10 Essential (primary) hypertension

== ENCOUNTER 2017-11-19 08:01 | Emergency (ER) | payer BC ==
[2017-11-19 08:01] VITALS: BMI 30.2
[2017-11-19 08:11] VITALS: BP 129/81; PULSE 90; RESP 18; TEMP 98.8; O2SAT 99
--- NOTE | 2017-11-19 09:08 | ED PDOC ---
Arrival/HPI - General Chief Complaint: Cough, Cold, Congestion Time Seen by Provider: 11/19/17 08:58 Historian: Patient - History of Present Illness Time/Duration: 1 week Symptom Onset: Gradual Symptom Course: Unchanged Severity Level: Moderate Associated Symptoms (Text): 11/19/17 09:05 Patient complains of approximately a one-week history of a cough productive of yellow sputum with URI symptoms. No chest pain. No fever or chills. No dyspnea. Past Medical History - Infectious Disease Hx of Infectious Diseases: None - Cardiac Hx Cardiac Disorders: Yes Hx Hypertension: Yes - Pulmonary Hx Respiratory Disorders: Yes Hx Asthma: Yes - Neurological Hx Neurological Disorder: No - HEENT Hx HEENT Disorder: No - Renal Hx Renal Disorder: No - Endocrine/Metabolic Hx Endocrine Disorders: No - Hematological/Oncological Hx Blood Disorders: No - Integumentary Hx Dermatological Disorder: No - Musculoskeletal/Rheumatological Hx Musculoskeletal Disorders: No - Gastrointestinal Hx Gastrointestinal Disorders: No - Genitourinary/Gynecological Hx Genitourinary Disorders: No - Psychiatric Hx Psychophysiologic Disorder: No Hx Substance Use: No - Surgical History Hx Breast Biopsy: Yes (cyst removal left breast) Hx Dilation and Curettage: Yes - Anesthesia Hx Anesthesia: Yes Hx Anesthesia Reactions: No Hx Malignant Hyperthermia: No Family/Social History - Physician Review Nursing Documentation Reviewed: Yes Family/Social History: Unknown Family HX Smoking Status: Heavy Smoker > 10 Cigarettes Daily Hx Alcohol Use: No Hx Substance Use: No Allergies/Home Meds Allergies/Adverse Reactions: Allergies lisinopril Allergy (Verified 11/19/17 08:11) SWELLING Home Medications: Home Meds Medication Instructions Recorded Confirmed amLODIPine [Norvasc] 10 mg PO DAILY 01/11/16 11/19/17 Review of Systems - Physician Review All systems were reviewed & negative as marked: Yes - Review of Systems Constitutional: Fatigue. absent: Fevers Respiratory: Cough, Sputum. absent: SOB, Wheezing Cardiovascular: absent: Chest Pain Gastrointestinal: absent: Abdominal Pain, Nausea, Vomiting Neurological: absent: Headache, Dizziness Physical Exam Vital Signs Temp Pulse Resp BP Pulse Ox 11/19/17 08:09 98.8 F 90 18 129/81 99 Temperature: Afebrile Blood Pressure: Normal Pulse: Regular Respiratory Rate: Normal Appearance: Positive for: Well-Appearing, Non-Toxic, Comfortable Pain Distress: None Mental Status: Positive for: Alert and Oriented X 3 - Systems Exam Head: Present: Atraumatic, Normocephalic Pupils: Present: PERRL Extroacular Muscles: Present: EOMI Conjunctiva: Present: Normal Ears: Present: NORMAL TM, Normal Canal. No: Erythema Mouth: Present: Moist Mucous Membranes Pharnyx: No: ERYTHEMA, EXUDATE, TONSILS ENLARGED Neck: Present: Normal Range of Motion Respiratory/Chest: Present: Clear to Auscultation, Good Air Exchange, Decreased Breath Sounds, Rhonchi. No: Respiratory Distress, Accessory Muscle Use, Wheezes , Rales, Retracting Cardiovascular: Present: Regular Rate and Rhythm, Normal S1, S2. No: Murmurs Skin: Present: Warm, Dry, Normal Color. No: Rashes Disposition/Present on Arrival - Present on Arrival Any Indicators Present on Arrival: No History of DVT/PE: No History of Uncontrolled Diabetes: No Urinary Catheter: No History of Decub. Ulcer: No History Surgical Site Infection Following: None - Disposition Have Diagnosis and Disposition been Completed?: Yes Diagnosis: Bronchitis, Upper respiratory infection Disposition: HOME/ ROUTINE Disposition Time: 09:07 Patient Plan: Discharge Condition: GOOD Discharge Instructions (ExitCare): Acute Bronchitis (ED), Upper Respiratory Infection (ED), How to Stop Smoking (ED) Additional Instructions: Symptomatic treatment. Tylenol or Advil as directed on bottle as needed. Follow- up with your PMD. Follow up in ER as needed. Prescriptions: Benzonatate [Tessalon Perles] 100 mg PO Q8 #30 sgl Albuterol HFA [Ventolin HFA 90 mcg/actuation (8 g)] 2 puff IH [id number] #1 puff Azithromycin [Zithromax] 250 mg PO DAILY #6 tab Forms: [employer] (British), WORK NOTE
== END 2017-11-19 09:15 | disposition home or self-care (01) ==
LOC: ED 08:01
DX: J40 Bronchitis, not specified as acute or chronic (principal); J06.9 Acute upper respiratory infection, unspecified; I10 Essential (primary) hypertension; F17.210 Nicotine dependence, cigarettes, uncomplicated

== ENCOUNTER 2018-07-28 21:34 | Emergency (ER) | payer BC ==
[2018-07-28 21:35] VITALS: BMI 30.2
[2018-07-28 22:09] VITALS: TEMP 98.5
--- NOTE | 2018-07-28 23:38 | ED PDOC ---
Arrival/HPI - General Historian: Patient - History of Present Illness Narrative History of Present Illness (Text): 07/28/18 23:38 Patient is a 57-year-old female who reports 2 day history of atraumatic right shoulder pain. 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 Now complains of local pain aggravated by motion. Otherwise: (-) head trauma, (-) neck pain, (-) weakness, (-) paresthesias, (-) other injury, (- ) fever, (-) other joint pain. <Akosua Molina PA-C - Last Filed: 07/29/18 00:48> <Chucho Calloway - Last Filed: 07/29/18 05:38> - General Chief Complaint: Upper Extremity Problem/Injury Time Seen by Provider: 07/28/18 22:26 Past Medical History - Infectious Disease Hx of Infectious Diseases: None - Cardiac Hx Cardiac Disorders: Yes Hx Hypertension: Yes - Pulmonary Hx Respiratory Disorders: Yes Hx Asthma: Yes - Neurological Hx Neurological Disorder: No - HEENT Hx HEENT Disorder: No - Renal Hx Renal Disorder: No - Endocrine/Metabolic Hx Endocrine Disorders: No - Hematological/Oncological Hx Blood Disorders: No - Integumentary Hx Dermatological Disorder: No - Musculoskeletal/Rheumatological Hx Musculoskeletal Disorders: No - Gastrointestinal Hx Gastrointestinal Disorders: No - Genitourinary/Gynecological Hx Genitourinary Disorders: No - Psychiatric Hx Psychophysiologic Disorder: No Hx Substance Use: No - Surgical History Hx Breast Biopsy: Yes (cyst removal left breast) Hx Dilation and Curettage: Yes - Anesthesia Hx Anesthesia: Yes Hx Anesthesia Reactions: No Hx Malignant Hyperthermia: No <Akosua Molina PA-C - Last Filed: 07/29/18 00:48> Family/Social History Family/Social History: No Known Family HX Smoking Status: Light Smoker < 10 Cigarettes Daily Hx Alcohol Use: No Hx Substance Use: No <Akosua Molina PA-C - Last Filed: 07/29/18 00:48> Allergies/Home Meds <Akosua Molina PA-C - Last Filed: 07/29/18 00:48> <Chucho Calloway - Last Filed: 07/29/18 05:38> Allergies/Adverse Reactions: Allergies lisinopril Allergy (Verified 11/19/17 08:11) SWELLING Home Medications: Home Meds Medication Instructions Recorded Confirmed RX: amLODIPine [Norvasc] 10 mg PO DAILY 01/11/16 11/19/17 Review of Systems - Review of Systems Constitutional: absent: Fatigue, Fevers Cardiovascular: absent: Chest Pain, Palpitations Musculoskeletal: Arthralgias. absent: Back Pain, Neck Pain Skin: absent: Rash, Pruritis, Skin Lesions <Akosua Molina PA-C - Last Filed: 07/29/18 00:48> Physical Exam Vital Signs Temp Pulse Resp BP Pulse Ox 07/28/18 22:07 98.5 F 96 H 18 175/96 H 97 Temperature: Afebrile Blood Pressure: Hypertensive Pulse: Regular Respiratory Rate: Normal Appearance: Positive for: Well-Appearing, Non-Toxic, Comfortable Pain Distress: Mild Mental Status: Positive for: Alert and Oriented X 3 - Systems Exam Head: Present: Atraumatic, Normocephalic Neck: Present: Normal Range of Motion. No: MIDLINE TENDERNESS, Lymphadenopathy Back: Present: Normal Inspection. No: Midline Tenderness, Paraspinal Tenderness Upper Extremity: Present: Normal Inspection, NORMAL PULSES, Tenderness (R shoulder : +tenderness with limited ROM secondary to pain), Neurovascularly Intact, Capillary Refill < 2s, Norm 2-Pt Discrimination. No: Temperature Abnormalties, Deformity Neurological: Present: GCS=15, CN II-XII Intact, Speech Normal, Motor Func Grossly Intact, Normal Sensory Function Skin: Present: Warm, Dry, Normal Color. No: Rashes Psychiatric: Present: Alert, Oriented x 3, Normal Insight, Normal Concentration <Akosua Molina PA-C - Last Filed: 07/29/18 00:48> Vital Signs Temp Pulse Resp BP Pulse Ox 07/29/18 00:41 88 16 153/90 H 100 07/28/18 22:07 98.5 F 96 H 18 175/96 H 97 <Chucho Calloway - Last Filed: 07/29/18 05:38> Medical Decision Making ED Course and Treatment: 07/28/18 23:41 Plan : - XR R shoulder - Tylenol PO XR right shoulder: no calcification, ? mild edema to the shoulder joint, no fracture, no dislocation, as read by PA Patient advised that official radiology read of XR is still pending and will call the patient if there is any discrepancy within 24 hours. X-ray results discussed with the patient in great detail. Shoulder sling applied. Advised to rest, ice, and wear sling for comfort. Advised to follow up with ortho referral in 1-2 days without fail. Return to the emergency room at any time for any new or worsening symptoms. Patient states she fully agrees with and understands discharge instructions. States that she agrees with the plan and disposition. Verbalized and repeated discharge instructions and plan. I have given the patient opportunity to ask any additional questions. - RAD Interpretation Radiology Orders: 07/28/18 22:56 SHOULDER RIGHT [RAD] Stat <Akosua Molina PA-C - Last Filed: 07/29/18 00:48> - RAD Interpretation Radiology Orders: 07/28/18 22:56 SHOULDER RIGHT [RAD] Stat - Medication Orders Current Medication Orders: Discontinued Medications Acetaminophen (Tylenol 325mg Tab) 975 mg PO STAT STA Stop: 07/28/18 23:45 Last Admin: 07/29/18 00:41 Dose: 975 mg Lidocaine (Lidoderm) 1 ea TD STAT STA Stop: 07/28/18 23:45 Last Admin: 07/29/18 00:39 Dose: 1 ea MAR Transdermal Patch Site Document 07/29/18 00:39 CNR (Rec: 07/29/18 00:41 CNR [id number]) Transdermal Patch Site Transdermal Patch Site Right Shoulder <Chucho Calloway - Last Filed: 07/29/18 05:38> - PA / OIL SPREADER OPERATOR / Resident Statement [facility] has reviewed & agrees with the documentation as recorded. <Akosua Molina PA-C - Last Filed: 07/29/18 00:48> - PA / OIL SPREADER OPERATOR / Resident Statement [facility] has reviewed & agrees with the documentation as recorded. <Chucho Calloway - Last Filed: 07/29/18 05:38> Disposition/Present on Arrival - Present on Arrival Any Indicators Present on Arrival: No History of DVT/PE: No History of Uncontrolled Diabetes: No Urinary Catheter: No History of Decub. Ulcer: No History Surgical Site Infection Following: None - Disposition Have Diagnosis and Disposition been Completed?: Yes Disposition Time: 23:30 Patient Plan: Discharge <Akosua Molina PA-C - Last Filed: 07/29/18 00:48> <Chucho Calloway - Last Filed: 07/29/18 05:38> - Disposition Diagnosis: Right shoulder pain Disposition: HOME/ ROUTINE Condition: STABLE Discharge Instructions (ExitCare): Shoulder Pain (DC) Additional Instructions: Thank you for letting us take care of you today. You were treated for right shoulder pain. The emergency medical care you received today was directed at your acute symptoms. If you were prescribed any medication, please fill it and take as directed. It may take several days for your symptoms to resolve. Return to the Emergency Department if your symptoms worsen, do not improve, or if you have any other problems. Please contact your doctor in 2 days for re-evaluation and follow up / or call one of the physicians/clinics you have been referred to that are listed on the Patient Visit Information form that is included in your discharge packet. Bring any paperwork you were given at discharge with you along with any medications you are taking to your follow up visit. Our treatment cannot replace ongoing medical care by a primary care provider (PCP) outside of the emergency department. Thank you for allowing the [facility] team to be part of your care today. If you had an X-Ray: A Radiologist will review the ED reading if any change in treatment is needed we will contact you. Prescriptions: Lidocaine 5% [Lidoderm] 1 ea TD Q12H PRN #20 patch PRN Reason: Pain, Moderate (4-7) Referrals: Marilee Hernandez MD [Staff Provider] - Follow up with primary Forms: [employer] (Lux[place]ish), WORK NOTE
[2018-07-28] MEDS ORDERED: Lidocaine 5% Patch TD STA (23:44)
[2018-07-29 00:42] VITALS: BP 153/90; PULSE 88; RESP 16; O2SAT 100
--- NOTE | 2018-07-29 08:32 | RAD ---
Date of service: 07/28/2018 PROCEDURE: Radiographs of the Right Shoulder HISTORY: pain COMPARISON: No prior. FINDINGS: BONES: Bone alignment and mineralization are normal. There is no acute displaced fracture or bone destruction. JOINTS: Normal. Glenohumeral and acromioclavicular joints preserved. No osteoarthritis. SOFT TISSUES: Normal. OTHER FINDINGS: None. IMPRESSION: No acute fracture or dislocation.
== END 2018-07-29 00:41 | disposition home or self-care (01) ==
LOC: ED 21:34
DX: M25.511 Pain in right shoulder (principal)